=== PATIENT | female | born 1970 | race American Indian/Alaskan Native ===

== ENCOUNTER 2017-02-23 19:18 | Emergency (ER) | payer SELFPAY ==
[2017-02-23 20:12] VITALS: BP 157/102
== END 2017-02-24 00:35 | disposition left against medical advice (07) ==
LOC: ED 19:18
DX: H92.02 Otalgia, left ear (principal); V49.9XXA Car occupant (driver) (passenger) injured in unspecified traffic accident, initial encounter; Y93.89 Activity, other specified; Y99.9 Unspecified external cause status; Y92.410 Unspecified street and highway as the place of occurrence of the external cause; Z53.21 Procedure and treatment not carried out due to patient leaving prior to being seen by health care provider